=== PATIENT | female | born 1990 | race Caucasian/White ===

== ENCOUNTER 2016-06-30 20:42 | Emergency (ER) | payer BC, MEDICAID, OTHER ==
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
[2016-07-01 05:53] VITALS: BP 115/83
== END 2016-06-30 21:40 | disposition home or self-care (01) ==
LOC: KA.ED 20:42
DX: S40.021A Contusion of right upper arm, initial encounter (principal); M19.90 Unspecified osteoarthritis, unspecified site; F41.9 Anxiety disorder, unspecified; F32.9 Major depressive disorder, single episode, unspecified; E66.9 Obesity, unspecified; Z87.891 Personal history of nicotine dependence; Z88.2 Allergy status to sulfonamides; Z79.899 Other long term (current) drug therapy; W22.8XXA Striking against or struck by other objects, initial encounter; Y99.0 Civilian activity done for income or pay
CPT/HCPCS: 99283